=== PATIENT | male | born 1990 | race Caucasian/White ===

== ENCOUNTER 2017-10-06 23:37 | Emergency (ER) | payer BC, OTHER ==
[2017-10-07] MEDS: NS 1,000 ML IV (00:48)
[2017-10-07 00:50] LABS: BASO % 0.3 % (0.0-1.0); EOS # 0.3 10^3/uL (0.0-0.50); EOS % 2.8 % (0.0-3.0); HEMATOCRIT 47.3 % (42.0-52.0); HEMOGLOBIN 15.5 g/dl (14.0-18.0); IMMATURE GRANULOCYTE % 0.2 % (0-3.0); LYMPH # 2.2 10^3/uL (1.5-6.5); LYMPH % 23.3 % (24.0-44.0); MEAN CORPUSCULAR HEMOGLOBIN 26.9 pg (27.0-33.0); MEAN CORPUSCULAR HGB CONC 32.8 g/dl (32.0-36.5); MEAN CORPUSCULAR VOLUME 82.1 fl (80.0-96.0); MONO # 0.8 10^3/uL (0.0-0.8); MONO % 8.3 % (0.0-5.0); NEUTROPHILS # 6.2 10^3/uL (1.8-7.7); NEUTROPHILS % 65.1 % (36.0-66.0); PLATELET COUNT, AUTOMATED 192 10^3/uL (150-450); RED BLOOD COUNT 5.76 10^6/uL (4.30-6.10); RED CELL DISTRIBUTION WIDTH 12.9 % (11.5-14.5); WHITE BLOOD COUNT 9.5 10^3/uL (4.0-10.0)
[2017-10-07 00:58] LABS: APPEARANCE, URINE CLEAR (CLEAR); BACTERIA, URINE AUTO NEGATIVE (NEGATIVE); BILIRUBIN, URINE AUTO NEGATIVE (NEGATIVE); BLOOD, URINE BLOOD NEGATIVE (NEGATIVE); CALCIUM OXALATE CRYSTALS SMALL; COLOR, URINE YELLOW (YELLOW); GLUCOSE, URINE (UA) AUTO NEGATIVE (NEGATIVE); KETONE, URINE AUTO TRACE mg/dL (NEGATIVE); LEUKOCYTE ESTERASE, URINE AUTO NEGATIVE (NEGATIVE); MUCUS, URINE SMALL (NEGATIVE); NITRITE, URINE AUTO NEGATIVE (NEGATIVE); PROTEIN, URINE AUTO NEGATIVE (NEGATIVE); RBC, URINE AUTO 2 /HPF (0-3); SQUAMOUS EPITHELIAL CELL UR AU 0 /HPF (0-6); WBC, URINE AUTO 0 /HPF (0-3)
[2017-10-07 01:06] LABS: ALBUMIN 4.3 GM/DL (3.2-5.2); ALBUMIN/GLOBULIN RATIO 1.23 (1.00-1.93); ALKALINE PHOSPHATASE 117 U/L (45-117); ALT/SGPT 69 U/L (12-78); ANION GAP 5 MEQ/L (8-16); AST/SGOT 118 U/L (7-37); BILIRUBIN,DIRECT < 0.1 MG/DL (0.0-0.2); BILIRUBIN,TOTAL 0.5 MG/DL (0.2-1.0); BLOOD UREA NITROGEN 23 MG/DL (7-18); CALCIUM LEVEL 9.3 MG/DL (8.5-10.1); CARBON DIOXIDE LEVEL 32 MEQ/L (21-32); CHLORIDE LEVEL 103 MEQ/L (98-107); CREATININE FOR GFR 1.25 MG/DL (0.70-1.30); GLOMERULAR FILTRATION RATE > 60.0 (>60); GLUCOSE, FASTING 141 MG/DL (70-100); LIPASE 166 U/L (73-393); POTASSIUM SERUM 3.8 MEQ/L (3.5-5.1); SODIUM LEVEL 140 MEQ/L (136-145); TOTAL PROTEIN 7.8 GM/DL (6.4-8.2)
[2017-10-07] MEDS ORDERED: ISOVUE-370 76% 100ML VIAL (Q9967) As Ordered (01:21)
[2017-10-07] MEDS: KETOROLAC 30 MG/ML VIAL (J1885) IV (01:25)
[2017-10-07] MEDS: HYDROmorphone HCL 1 MG/ML SYRINGE (J1170) IV (03:04)
[2017-10-07] MEDS: NORCO 5/325MG TABLET (BULK FOR ED) PO (04:15)
== END 2017-10-07 04:23 | disposition home or self-care (01) ==
LOC: M ED 23:37
DX: R00.1 Bradycardia, unspecified (principal); K82.9 Disease of gallbladder, unspecified; M54.9 Dorsalgia, unspecified; K80.20 Calculus of gallbladder without cholecystitis without obstruction
CPT/HCPCS: J1170

== ENCOUNTER 2020-11-07 16:30 | Emergency (ER) | payer BC, OTHER ==
[~2020-11-07] VITALS: Ht 182.9 cm; Wt 114.6 kg
[2020-11-07 16:31] VITALS: BP 140/75
[2020-11-07] MEDS ORDERED: MECLIZINE 25 MG TABLET PO ONE (17:25)
[2020-11-07 17:51] LABS: BASO % 0.3 % (0.0-1.0); EOS # 0.2 10^3/uL (0.0-0.5); EOS % 2.3 % (0.0-3.0); HEMATOCRIT 48.3 % (42.0-52.0); HEMOGLOBIN 15.8 g/dl (13.5-17.5); LYMPH # 1.6 10^3/uL (1.5-5.0); LYMPH % 20.6 % (24.0-44.0); MEAN CORPUSCULAR HEMOGLOBIN 26.8 pg (27.0-33.0); MEAN CORPUSCULAR HGB CONC 32.7 g/dl (32.0-36.5); MONO # 0.7 10^3/uL (0.0-0.8); MONO % 9.7 % (2.0-8.0); NEUTROPHILS % 66.6 % (36.0-66.0); PLATELET COUNT, AUTOMATED 165 10^3/uL (150-450); RED BLOOD COUNT 5.89 10^6/uL (4.30-6.10); WHITE BLOOD COUNT 7.5 10^3/uL (4.0-10.0)
--- NOTE | 2020-11-07 18:15 | REPVR ---
PROCEDURE INFORMATION: Exam: CT Head Without Contrast Exam date and time: 11/07/2020 5:25 PM Age: 30 years old Clinical indication: Syncope and collapse TECHNIQUE: Imaging protocol: Computed tomography of the head without contrast. Radiation optimization: All CT scans at this facility use at least one of these dose optimization techniques: automated exposure control; mA and/or kV adjustment per patient size (includes targeted exams where dose is matched to clinical indication); or iterative reconstruction. COMPARISON: No relevant prior studies available. FINDINGS: Brain: Normal. No hemorrhage. Unremarkable white matter. No mass effect. Cerebral ventricles: No ventriculomegaly. Bones/joints: Unremarkable. No acute fracture. Paranasal sinuses: Visualized sinuses are unremarkable. No fluid levels. Mastoid air cells: Visualized mastoid air cells are well aerated. Soft tissues: Unremarkable. IMPRESSION: No acute intracranial abnormality. Electronically signed by: Joss Chacon On 11/07/2020 18:15:07 PM
--- NOTE | 2020-11-07 18:19 | REPVR ---
PROCEDURE INFORMATION: Exam: CT Cervical Spine Without Contrast Exam date and time: 11/07/2020 5:25 PM Age: 30 years old Clinical indication: Other: Syncope TECHNIQUE: Imaging protocol: Computed tomography images of the cervical spine without contrast. Radiation optimization: All CT scans at this facility use at least one of these dose optimization techniques: automated exposure control; mA and/or kV adjustment per patient size (includes targeted exams where dose is matched to clinical indication); or iterative reconstruction. COMPARISON: No relevant prior studies available. FINDINGS: Bones/joints: Reversal of cervical lordosis. Discs/Spinal canal/Neural foramina: No significant disc protrusion. No severe spinal canal stenosis. No significant neural foraminal narrowing. Auditory system: Retained cerumen in the right external auditory canal. Lungs: Lung apices are normal. Soft tissues: Unremarkable. IMPRESSION: No acute findings. Electronically signed by: Joss Chacon On 11/07/2020 18:19:23 PM
[2020-11-07 18:25] LABS: BLOOD UREA NITROGEN 14 MG/DL (7-18); CALCIUM LEVEL 9.4 MG/DL (8.5-10.1); CARBON DIOXIDE LEVEL 31 MEQ/L (21-32); CHLORIDE LEVEL 105 MEQ/L (98-107); CK-MB VALUE MASS 3.6 NG/ML (<3.6); CPK CREATINE PHOSPHOKINASE 174 U/L (39-308); CREATININE FOR GFR 1.09 MG/DL (0.70-1.30); FREE T4 0.89 NG/DL (0.76-1.46); GLOMERULAR FILTRATION RATE > 60.0 (>60); GLUCOSE, FASTING 105 MG/DL (70-100); MAGNESIUM LEVEL 2.3 MG/DL (1.8-2.4); MB/CK RELATIVE INDEX 2.07 (< OR =4); POTASSIUM SERUM 3.9 MEQ/L (3.5-5.1); SODIUM LEVEL 141 MEQ/L (136-145); TROPONIN I < 0.02 NG/ML (< 0.10)
[2020-11-07] MEDS ORDERED: MECL1TAB31 PO (18:45)
== END 2020-11-07 18:56 | disposition home or self-care (01) ==
LOC: M ED 16:30
DX: R42 Dizziness and giddiness (principal); R20.2 Paresthesia of skin; R19.7 Diarrhea, unspecified

== ENCOUNTER 2021-01-06 12:02 | Inpatient (IN) | payer OTHER ==
[~2021-01-06] VITALS: Ht 182.9 cm; Wt 108.3 kg
[~2021-01-06 12:02] MED LIST: MECL1TAB31 PO
[2021-01-06 12:47] LABS: BASO % 0.4 % (0.0-1.0); EOS # 0.1 10^3/uL (0.0-0.5); HEMATOCRIT 45.9 % (42.0-52.0); HEMOGLOBIN 15.1 g/dl (13.5-17.5); LYMPH % 18.8 % (24.0-44.0); MEAN CORPUSCULAR HEMOGLOBIN 26.9 pg (27.0-33.0); MEAN CORPUSCULAR HGB CONC 32.9 g/dl (32.0-36.5); MEAN CORPUSCULAR VOLUME 81.7 fl (80.0-96.0); MONO # 0.5 10^3/uL (0.0-0.8); MONO % 9.7 % (2.0-8.0); NEUTROPHILS # 3.8 10^3/uL (1.5-8.5); NEUTROPHILS % 68.6 % (36.0-66.0); PLATELET COUNT, AUTOMATED 179 10^3/uL (150-450); RED BLOOD COUNT 5.62 10^6/uL (4.30-6.10); WHITE BLOOD COUNT 5.5 10^3/uL (4.0-10.0)
--- NOTE | 2021-01-06 12:48 | REP ---
INDICATION: CHEST PAIN. COMPARISON: None. FINDINGS: The technique utilized in obtaining the radiograph has magnified the cardiac silhouette and accentuated the interstitial markings. The superior mediastinal structures are midline. The cardiac silhouette is unremarkable in size, shape, and position. The diaphragmatic surfaces of the lungs are regular, and the costophrenic angles are clear. The pulmonary bianchi are clear. The imaged osseous structures are intact. IMPRESSION: There is no acute cardiopulmonary disease. <Electronically signed by Bari Huerta > 01/06/21 [id number]
[2021-01-06 13:05] LABS: INR 1.03; PARTIAL THROMBOPLASTIN TIME 31.5 SECONDS (24.2-38.5); PROTHROMBIN TIME 13.7 SECONDS (12.5-14.3)
[2021-01-06 13:26] LABS: ALBUMIN 4.4 GM/DL (3.2-5.2); ALT/SGPT 54 U/L (12-78); BILIRUBIN,DIRECT 0.1 MG/DL (0.0-0.2); BILIRUBIN,TOTAL 0.5 MG/DL (0.2-1.0); BLOOD UREA NITROGEN 23 MG/DL (7-18); CALCIUM LEVEL 9.5 MG/DL (8.5-10.1); CARBON DIOXIDE LEVEL 27 MEQ/L (21-32); CHLORIDE LEVEL 108 MEQ/L (98-107); CREATININE FOR GFR 0.96 MG/DL (0.70-1.30); FREE T4 1.06 NG/DL (0.76-1.46); GLOMERULAR FILTRATION RATE > 60.0 (>60); GLUCOSE, FASTING 101 MG/DL (70-100); LIPASE 105 U/L (73-393); POTASSIUM SERUM 4.1 MEQ/L (3.5-5.1); SODIUM LEVEL 139 MEQ/L (136-145); TOTAL PROTEIN 7.3 GM/DL (6.4-8.2)
[2021-01-06 16:57] LABS: D-DIMER QUANT < 270 ng/ml (<500)
[2021-01-06] MEDS ORDERED: FAMOTIDINE 20 MG TAB PO ONE (19:40)
[2021-01-06] MEDS ORDERED: ASPIRIN 325 MG TAB PO ONE (19:40)
[2021-01-06 20:02] LABS: CHOLESTEROL LEVEL 193 MG/DL (<200); CHOLESTEROL RISK RATIO 5.361 (<5); HDL CHOLESTEROL 36 MG/DL (>40); LDL CHOLESTEROL 80 MG/DL (<100); NON-HDL-C 157 MG/DL; TRIGLYCERIDES LEVEL 387 MG/DL (<150)
[2021-01-06] MEDS ORDERED: ACETAMINOPHEN TAB 650MG DOSE (2X325MG) PO PRN (20:25)
[2021-01-06] MEDS ORDERED: MOM 30ML SUSPENSION UDC PO PRN (20:25)
[2021-01-06] MEDS ORDERED: MAALOX 30 ML SUSP *UDC PO PRN (20:25)
[2021-01-06] MEDS ORDERED: NITROGLYCERIN 0.4 MG SUBL TABLET SL PRN (20:25)
[2021-01-06] MEDS ORDERED: NITROGLYCERIN 0.4 MG SUBL TABLET As Ordered ONE (20:32)
[2021-01-06] MEDS ORDERED: ISOVUE-370 76% 100ML VIAL As Ordered ONE (20:43)
[2021-01-06 21:01] LABS: NT-PRO BNP 19 PG/ML (<125)
[2021-01-06 21:15] LABS: HEMOGLOBIN A1c 5.1 %
--- NOTE | 2021-01-06 21:22 | REPVR ---
PROCEDURE INFORMATION: Exam: CTA Chest With Contrast Exam date and time: 01/06/2021 9:05 PM Age: 30 years old Clinical indication: Pain; Chest pressure; Additional info: Aortic dissection protocol TECHNIQUE: Imaging protocol: Computed tomographic angiography of the chest with contrast. 3D rendering (Not supervised by radiologist): MIP and/or 3D reconstructed images were created by the technologist. Radiation optimization: All CT scans at this facility use at least one of these dose optimization techniques: automated exposure control; mA and/or kV adjustment per patient size (includes targeted exams where dose is matched to clinical indication); or iterative reconstruction. Contrast material: ISOVUE 370; Contrast volume: 75 ml; Contrast route: INTRAVENOUS (IV); COMPARISON: CT ANGIO CHEST 10/07/2017 1:29 AM FINDINGS: Pulmonary arteries: There are no pulmonary emboli. Aorta: There is no aortic dissection or aneurysm. Lungs: Unremarkable. No consolidation. No masses. Pleural spaces: Unremarkable. No pneumothorax. No pleural effusion. Heart: Unremarkable. No cardiomegaly. No pericardial effusion. Lymph nodes: Unremarkable. No enlarged lymph nodes. Bones/joints: Unremarkable. No acute fracture. Soft tissues: Unremarkable. IMPRESSION: 1. There is no aortic dissection or aneurysm. 2. There are no pulmonary emboli. 3. No acute pulmonary parenchymal infiltrates. Electronically signed by: Joss Chacon On 01/06/2021 21:22:08 PM
--- NOTE | 2021-01-06 22:35 | HPEPDOC ---
[facility] Medical History & Physical Date of Admission January 06, 2021 Date of Service: January 06, 2021 Primary Care Physician: MARGIE SHUKLA DO Attending Physician: CAR CLAROS MD History and Physical TIME OF SERVICE: 820pm CHIEF COMPLAINT: chest pressure HISTORY OF PRESENT ILLNESS: This 30 yr old M presented w c/o 1 H in duration non-radiating left sided chest pressure that is associated with chills and feeling cold. He denied having a similar episode in the past and denied having leg swelling REVIEW OF SYSTEMS: 12-point review of systems negative except as listed in HPI PAST MEDICAL/ SURGICAL HISTORY: class 1 obesity / repair of L inguinal hernia SOCIAL HISTORY: used to chew tobacco products but currently denied smoking or using recreational drugs / he drinks alcohol socially FAMILY HISTORY: grand father had triple by-pass (unknown age), mother had brain tumor and DM ALLERGIES: Please see below. HOME MEDICATIONS: Please see below. PHYSICAL EXAMINATION: Vital Signs Date Time Temp Pulse Resp B/P (MAP) Pulse Ox O2 Delivery O2 Flow Rate FiO2 01/06/21 12:02 97.2 99 20 146/83 (104) 96 Room Air GENERAL APPEARANCE: well nourished and developed/ anxious/ having chills HEENT: EOMI CARDIOVASCULAR: RRR/NMRG LUNGS: CTAB on R ABDOMEN: obese/ soft & NT MUSCULOSKELETAL: RHEA x 4 INTEGUMENT: slightly flushed and diaphoretic NEUROLOGICAL: CN 2-12 grossly intact /speech not dysarthric PSYCHIATRIC: A&Ox 3 /able to understand and follow all commands LABORATORY DATA: 01/06/21 12:10 Immature Granulocyte % (Auto) 0.5, Neutrophils (%) (Auto) 68.6H, Lymphocytes (%) (Auto) 18.8L, Monocytes (%) (Auto) 9.7H, Eosinophils (%) (Auto) 2.0, Basophils (%) (Auto) 0.4, Neutrophils # (Auto) 3.8, Lymphocytes # (Auto) 1.0L, Monocytes # (Auto) 0.5, Eosinophils # (Auto) 0.1, Basophils # (Auto) 0.0, Nucleated Red Blood Cells % (auto) 0.0, Prothrombin Time 13.7, Prothromb Time International Ratio 1.03, Activated Partial Thromboplast Time 31.5, D-Dimer, Quantitative < 270, Anion Gap 4L, Glomerular Filtration Rate > 60.0, Estimated Mean Plasma Glucose 100, Hemoglobin A1c 5.1, Calcium Level 9.5, Total Bilirubin 0.5, Direct Bilirubin 0.1, Aspartate Amino Transf (AST/SGOT) 27, Alanine Aminotransferase (ALT/SGPT) 54, Alkaline Phosphatase 91, QV-Ute-B-Type Natriuretic Peptide 19, Total Protein 7.3, Albumin 4.4, Albumin/Globulin Ratio 1.5, Triglycerides Level 387H, Total Cholesterol 193, LDL Cholesterol 80, Non-HDL Cholesterol (LDL + VLDL) 157, Total HDL Cholesterol 36L, Cholesterol/HDL Ratio 5.361H, Lipase 105, Thyroid Stimulating Hormone (TSH) 1.330, Free Thyroxine 1.06 01/06/21 12:30: POC Troponin I (Misc) 0.01 01/06/21 19:24: POC Troponin I (Misc) 0.15H IMAGING: Chest xray IMPRESSION: There is no acute cardiopulmonary disease. CTA chest IMPRESSION: 1. There is no aortic dissection or aneurysm. 2. There are no pulmonary emboli. 3. No acute pulmonary parenchymal infiltrates. MICROBIOLOGY: covid 19 pending ASSESSMENT: Mr.St Sosa is a 30 yr old w obesity who is admitted for evaluation of chest pain. PLAN: 1 Chest pressure Possibly due to Drug use vs NSTEMI vs Coronary vasospasm vs other cause TBD He doesnt have aortic dissection, accelerateD HTN, SVTs or CHF The first 2 EKGs dont show acute ST changes NII Score for NSTEMI = 1 = low risk based on JAMAs article Does this patient with Chest pain have ACS? individuals with a NII SCORE <2 have a LR of 0.31 of ACS Plan: based on the Troponin-only [place] Acute Coronary Syndromes (TMACS) Decision Aid to help rule out ACS his risk of ACS or MACE in 30 days is 6% we will admit him / telemetry /f/u serial trops, lipid panel, A1C & Echo / acetaminophen, Nitro for CP / if his work up is neg he should be referred to Cardio for a stress test on an out patient basis 2 Possible stage 1 or 2 HTN Plan: he should follow up with his PCP for additional BP readings +/- ABPM prior to confirming the diagnosis and starting BP meds 3 Class 1 obesity complicates care Plan: f/u A1C if not done in the last 3 yrs. / the patient can f/u w his or her PCP for sleep apnea screening /recommend cardiovascular exercise for 40 min 4-5 days a week DVT px w SCDs Dispo: home after at least 2 midnights stay Home Medications No Active Prescriptions or Reported Meds Allergies Coded Allergies: No Known Allergies (Unverified , 10/07/17) A-FIB/CHADSVASC A-FIB History Current/History of A-Fib/PAF?: No Current PO Anticoag Therapy: No CAR CLAROS MD January 06, 2021 22:35
[2021-01-07 00:03] LABS: CPK CREATINE PHOSPHOKINASE 235 U/L (39-308)
[2021-01-07 01:31] VITALS: BP 122/60
[2021-01-07 04:00] VITALS: BP 109/62
[2021-01-07 05:54] LABS: HEMATOCRIT 44.7 % (42.0-52.0); HEMOGLOBIN 14.9 g/dl (13.5-17.5); MEAN CORPUSCULAR HEMOGLOBIN 27.2 pg (27.0-33.0); MEAN CORPUSCULAR HGB CONC 33.3 g/dl (32.0-36.5); MEAN CORPUSCULAR VOLUME 81.7 fl (80.0-96.0); PLATELET COUNT, AUTOMATED 164 10^3/uL (150-450); RED BLOOD COUNT 5.47 10^6/uL (4.30-6.10); WHITE BLOOD COUNT 8.2 10^3/uL (4.0-10.0)
[2021-01-07 06:15] LABS: BLOOD UREA NITROGEN 16 MG/DL (7-18); CALCIUM LEVEL 9.5 MG/DL (8.5-10.1); CARBON DIOXIDE LEVEL 26 MEQ/L (21-32); CHLORIDE LEVEL 108 MEQ/L (98-107); CREATININE FOR GFR 0.98 MG/DL (0.70-1.30); GLOMERULAR FILTRATION RATE > 60.0 (>60); GLUCOSE, FASTING 89 MG/DL (70-100); POTASSIUM SERUM 3.9 MEQ/L (3.5-5.1); SODIUM LEVEL 140 MEQ/L (136-145)
[2021-01-07 07:50] LABS: TRIGLYCERIDES LEVEL 142 MG/DL (<150)
[2021-01-07 08:00] VITALS: BP 115/61
[2021-01-07] MEDS ORDERED: ASPIRIN 81 MG CHEW TABLET PO SCH (09:00)
--- NOTE | 2021-01-07 10:05 | DS.PDOC ---
Discharge Summary General Date of Admission January 06, 2021 at 20:24 Date of Discharge 01/07/21 Specialist/Consultants [facility] Discharge Summary PROCEDURES PERFORMED DURING STAY: [None]. ADMITTING DIAGNOSES: #chest pain DISCHARGE DIAGNOSES: #chest pain - ruled out ACS COMPLICATIONS/CHIEF COMPLAINT: Nstemi. HPI/HOSPITAL COURSE: 30-year-old male who was in his usual state of good health presented for several hours history of left-sided chest pain, chest pain began in the morning when he was in the basement working with his computers and continued to persist. . He was admitted for further evaluation and treatment. He had positive troponins obtained as [id number] in the ED, however, repeat regular blood draw troponins were negative 3. His chest pain had completely resolved. He stated he had never had issues with chest pain or shortness of breath at rest or with activity. Case was discussed extensively with cardiology with recommendations for discharge and outpatient follow-up. DISCHARGE MEDICATIONS: Please see below. ALLERGIES: Please see below. PHYSICAL EXAMINATION ON DISCHARGE: VITAL SIGNS: Please see below. GENERAL: NAD, lying comfortably in bed, in good spirits. HEENT: NC/AT, EOMI Lungs: CTA B/L Heart: +S1S2, RRR, - M/R/G Abd: soft, NT, +BS Ext: no edema LABORATORY DATA: Please see below. ACTIVITY: [As tolerated]. DISPOSITION: Discharge home DISCHARGE INSTRUCTIONS: 1. Follow up with PCP in 3-5 days. 2. Recommend further evaluation for possible stress test. DISCHARGE CONDITION: [Stable]. TIME SPENT ON DISCHARGE: 35 minutes. Vital Signs/I&Os Vital Signs Date Time Temp Pulse Resp B/P (MAP) Pulse Ox O2 Delivery O2 Flow Rate FiO2 01/07/21 04:00 97.5 64 18 109/62 (78) 96 Room Air I&O- Last 24 Hours up to 6 AM 01/07/21 06:00 Intake Total 360 ml Output Total 200 ml Balance 160 ml Laboratory Data Labs 24H Laboratory Tests 2 01/06/21 12:10: Immature Granulocyte % (Auto) 0.5, Neutrophils (%) (Auto) 68.6H, Lymphocytes (%) (Auto) 18.8L, Monocytes (%) (Auto) 9.7H, Eosinophils (%) (Auto) 2.0, Basophils (%) (Auto) 0.4, Neutrophils # (Auto) 3.8, Lymphocytes # (Auto) 1.0L, Monocytes # (Auto) 0.5, Eosinophils # (Auto) 0.1, Basophils # (Auto) 0.0, Nucleated Red Blood Cells % (auto) 0.0, Prothrombin Time 13.7, Prothromb Time International Ratio 1.03, Activated Partial Thromboplast Time 31.5, D-Dimer, Quantitative < 270, Anion Gap 4L, Glomerular Filtration Rate > 60.0, Estimated Mean Plasma Glucose 100, Hemoglobin A1c 5.1, Calcium Level 9.5, Total Bilirubin 0.5, Direct Bilirubin 0.1, Aspartate Amino Transf (AST/SGOT) 27, Alanine Aminotransferase (ALT/SGPT) 54, Alkaline Phosphatase 91, Total Creatine Kinase 235, PU-Yce-F-Type Natriuretic Peptide 19, Total Protein 7.3, Albumin 4.4, Albumin/Globulin Ratio 1.5, Triglycerides Level 387H, Total Cholesterol 193, LDL Cholesterol 80, Non-H DL Cholesterol (LDL + VLDL) 157, Total HDL Cholesterol 36L, Cholesterol/HDL Ratio 5.361H, Lipase 105, Thyroid Stimulating Hormone (TSH) 1.330, Free Thyroxine 1.06 01/06/21 12:30: POC Troponin I (Misc) 0.01 01/06/21 19:24: POC Troponin I (Misc) 0.15H 01/07/21 00:14: Troponin I < 0.02 01/07/21 01:35: 01/07/21 03:04: Troponin I < 0.02 01/07/21 05:44: Troponin I < 0.02, Nucleated Red Blood Cells % (auto) 0.0, Anion Gap 6L, Glomerular Filtration Rate > 60.0, Calcium Level 9.5, Triglycerides Level 142 01/07/21 08:50: Troponin I < 0.02 CBC/BMP Laboratory Tests 01/06/21 12:10 01/07/21 05:44 Microbiology Microbiology 01/06/21 Respiratory Virus Panel (PCR) ([facility]) - Final, Complete Discharge Medications No Active Prescriptions or Reported Meds Allergies Coded Allergies: No Known Allergies (Unverified , 10/07/17) LESLY PIZARRO MD January 07, 2021 10:05
[2021-01-07 12:00] VITALS: BP 114/75
--- NOTE | 2021-01-07 13:41 | ECGEPIP ---
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
--- NOTE | 2021-01-07 13:49 | ECGEPIP ---
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
--- NOTE | 2021-01-07 13:49 | ECGEPIP ---
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
--- NOTE | 2021-01-09 07:57 | ECHO ---
DATE OF PROCEDURE: 01/07/2021 Age: 30 Gender: Male Height: 180 cm Weight: 108 kg REFERRING PHYSICIAN: Ana White MD. INDICATION: Chest pain. MEASUREMENTS: IVS 0.9 cm LV 4.8 cm LVPW 1.0 cm LA 3.8 cm Aorta 3.3 cm RV 3.4 cm IVC 1.5 cm Mitral E wave velocity 71 cm/s Mitral A wave 47 cm/s E prime septal 7.8 cm/s E prime lateral 12.2 cm/s FINDINGS: This study is of good technical quality. The patient is in sinus rhythm. Left ventricle has normal size and systolic function with estimated EF around 60% to 6% Computer calculated LVEF was 57%. No segmental wall motion abnormalities are appreciated. The right ventricle is normal size and systolic function. Both atria appear normal. All four cardiac valves were well seen and appear normal. No pericardial effusion is noted. Inferior vena cava is normal size and appropriately collapses with inspiration. Aortic root and aortic arch appear normal. Abdominal aorta was poorly visualized. Doppler interrogation reveals competent aortic, tricuspid, and pulmonic valves. There is trace mitral insufficiency. Mitral inflow pattern and tissue Doppler imaging of the mitral annulus revealed normal diastolic function of the left ventricle. Global longitudinal strain was negative 18.1%, which is normal. CONCLUSIONS: 1. Study is of good technical quality, underlying sinus rhythm. 2. Normal LV size and systolic function, normal diastolic function. 3. No significant valvular disease. 4. No pericardial effusion. 5. Normal central venous pressure. 6. Essentially normal echocardiogram. [facility]
== END 2021-01-07 13:40 | disposition home or self-care (01) | DRG 203 ==
LOC: M ED 12:02 → M ICU 20:24 → M ED INP 20:24 → ENRESERV 01-07 00:23 → M ICU 01-07 01:25
PROVIDERS: ADMIT Internal Medicine; ATTEND Internal Medicine
DX: R07.9 Chest pain, unspecified (principal); E66.9 Obesity, unspecified

== ENCOUNTER → 2021-03-06 | Outpatient (REF) | payer OTHER | LOC: M LAB REF 11:08 | PROVIDERS: ATTEND Physician Assistant Medical | DX: J02.9 Acute pharyngitis, unspecified (principal) ==

== ENCOUNTER → 2022-11-05 | Outpatient (CLI) | payer OTHER | LOC: M SLEEP HO 11:05 | PROVIDERS: ATTEND Nurse Practitioner Adult Health | DX: R06.83 Snoring (principal) ==

== ENCOUNTER 2024-03-11 10:05 | Day surgery (SDC) | payer OTHER ==
[~2024-03-11] VITALS: Ht 180.3 cm; Wt 102.5 kg
[~2024-03-11 10:05] MED LIST changes: +CITA20TA7 PO; +MECL-209 PO; -MECL1TAB31 PO; +NS 1,000 ML IV SCH; +OMEP40CA5 PO
[2024-03-11] MEDS ORDERED: fentaNYL 100 MCG/2 ML INJECTION As Ordered ONE (10:32)
[2024-03-11] MEDS ORDERED: LIDOCAINE 2% 100MG/5ML SDV (FOR ANES.) As Ordered ONE (10:35)
[2024-03-11] MEDS ORDERED: propofoL 200 MG/20 ML VIAL As Ordered ONE (10:35)
[2024-03-11 10:48] VITALS: TEMP 99.1
[2024-03-11 11:01] VITALS: BP 135/93; O2SAT 94
== END 2024-03-11 11:06 | disposition home or self-care (01) ==
LOC: M OPP 10:05
PROVIDERS: ATTEND Surgery
DX: K31.89 Other diseases of stomach and duodenum (principal); K21.9 Gastro-esophageal reflux disease without esophagitis; R12 Heartburn; Z79.899 Other long term (current) drug therapy
CPT/HCPCS: 43239; 88305; J3010

== ENCOUNTER → 2024-06-18 | Outpatient (CLI) | payer OTHER ==
[~2024-06-18] MED LIST changes: -NS 1,000 ML IV SCH
== END ==
LOC: M PLAIMG 13:51
PROVIDERS: ATTEND Family Medicine
DX: J20.9 Acute bronchitis, unspecified (principal)

== ENCOUNTER → 2024-06-29 | Outpatient (CLI) | payer OTHER | LOC: M SLEEP HO 10:53 | PROVIDERS: ATTEND Physician Assistant | DX: G47.33 Obstructive sleep apnea (adult) (pediatric) (principal) ==